=== PATIENT | female | born 1990 | race Caucasian/White ===

== ENCOUNTER 2017-09-12 22:05 | Emergency (ER) | payer OTHER ==
[~2017-09-12] VITALS: Ht 165.1 cm; Wt 77.6 kg
[2017-09-12 22:21] VITALS: BP 129/78; Ht 165.1 cm; Wt 77.6 kg
== END 2017-09-12 23:18 | disposition home or self-care (01) ==
LOC: ED 22:05
DX: J02.9 Acute pharyngitis, unspecified (principal); J04.0 Acute laryngitis

== ENCOUNTER 2018-10-20 09:47 | Emergency (ER) | payer OTHER ==
[~2018-10-20] VITALS: Ht 162.6 cm; Wt 78.9 kg
[2018-10-20 10:07] VITALS: BP 134/87; Ht 162.6 cm; Wt 78.9 kg
== END 2018-10-20 12:29 | disposition home or self-care (01) ==
LOC: ED 09:47
DX: J20.9 Acute bronchitis, unspecified (principal); J30.9 Allergic rhinitis, unspecified; H65.91 Unspecified nonsuppurative otitis media, right ear
CPT/HCPCS: J1100

== ENCOUNTER 2019-04-15 20:42 | Emergency (ER) | payer SELFPAY ==
[~2019-04-15] VITALS: Ht 162.6 cm; Wt 82.6 kg
[2019-04-15 23:03] VITALS: BP 143/97
== END 2019-04-15 23:03 | disposition home or self-care (01) ==
LOC: ED 20:42
DX: H10.89 Other conjunctivitis (principal)
CPT/HCPCS: J7613